=== PATIENT | female | born 1945 | race Caucasian/White ===

== ENCOUNTER → 2017-07-19 | Outpatient (CLI) | payer OTHER ==
[~2017-07-19] MED LIST: ANT25 PO; ASPI81TA28 PO; ATOR10TA82 PO; CALC500C70 PO; CINN1CAP2 PO; CLOP1TAB15 PO; CYAN10002 IM; DVN/160 PO; ESTR1CRE PV; FAMO20TA11 PO; GADAVIST IV PRN; HYDR-3124 PO; HYDR25TA4 PO; LEVO25TA5 PO; MAGN400T6 PO; METF-384 PO; METO25TA4 PO; MISCTAB30 PO; MULT-506 PO; NTRSL3 UT; OMEG10007 PO; PRAV20TA PO; VSC/5 PO; ZOLP5TAB PO; [UNRECOGNIZED DRUG - OTHER] PO
--- NOTE | 2017-07-19 09:19 | DIAGNOSTIC IMAGING REPORT ---
LOWER EXT NONJOINT COMBO CLINICAL HISTORY: 71 years-old Female presenting with L FOOT PAIN. TECHNIQUE: Multisequence, multiplanar MR imaging of the left foot was performed before and after the administration of intravenous contrast. IV contrast: 6 mL of Gadavist. COMPARISON: None. FINDINGS: Localizer images: Unremarkable. A marker is in place over the dorsum of the third metatarsal. Subjacent to this site, there is fluid noted in the intermetatarsal bursa between the third and fourth metatarsal heads (third interweb space). No bony edema. Minimal superficial subcutaneous edema over the dorsum and lateral aspect of the forefoot. Normal muscle bulk and muscle signal intensity. Visualized portion of the plantar fascia is normal. Postcontrast imaging demonstrates no abnormal enhancement. Degenerative changes of the first metatarsophalangeal joint evidenced by osteophytosis. There may also be marginal erosions at the first metatarsal head. Again, bone marrow signal intensity remains normal. IMPRESSION: 1. Findings consistent with intermetatarsal bursitis in the third interweb space. 2. No evidence of a Mccormack neuroma. 3. Degenerative changes of the first metatarsophalangeal joint. The presence of marginal erosions at the first metatarsal head raises concern for possible gout. Correlate clinically. Electronically signed by: Albaro Sarkar M.D. 07/19/2017 9:18 AM Dictated Date/Time: 07/19/2017 9:12 AM
== END | disposition home or self-care (01) ==
LOC: C.MRI 07:13
PROVIDERS: ATTEND Podiatrist Foot & Ankle Surgery
DX: G57.82 Other specified mononeuropathies of left lower limb (principal); G57.62 Lesion of plantar nerve, left lower limb; D36.13 Benign neoplasm of peripheral nerves and autonomic nervous system of lower limb, including hip; R93.7 Abnormal findings on diagnostic imaging of other parts of musculoskeletal system